=== PATIENT | female | born 1955 | race Caucasian/White ===

== ENCOUNTER 2022-08-26 14:20 | Emergency (ER) | payer BC, OTHER ==
--- NOTE | 2022-08-26 15:58 | RAD REPORT ---
EXAM DESCRIPTION: RAD - Chest Single View - 08/26/2022 3:51 pm CLINICAL HISTORY: Near syncope COMPARISON: None TECHNIQUE: AP portable chest image was obtained 08/26/2022 3:51 pm . FINDINGS: Lungs are clear of failure, pulmonary edema or acute infiltrate. No suspicious mass identi fied. There is a small 6 mm nodular density in the lower left lung field that can be re-evaluated wit h follow-up two view imaging in 3-4 months. Heart and vasculature are normal. No measurable pleural effusion and no pneumothorax. No acute bony abnormality seen. No acute aortic findings suspected. IMPRESSION: No acute cardiopulmonary process. Small 6 mm nodule in the lower left lung field can be re-evaluated with two view imaging in 3-4 month s.
--- NOTE | 2022-08-26 15:59 | RAD REPORT ---
EXAM DESCRIPTION: CT - Head Brain Wo Cont - 08/26/2022 3:47 pm CLINICAL HISTORY: Near syncope COMPARISON: No comparisons TECHNIQUE: Axial 5 mm thick images of the head were obtained without IV contrast. All CT scans are performed using dose optimization technique as appropriate and may include automated exposure control or mA/KV adjustment according to patient size. FINDINGS: No intracranial hemorrhage, mass, edema or shift of mid-line structures. No acute infarcti on changes seen. No abnormal extra-axial fluid collections. Ventricles are normal. No significant atr ophy or chronic ischemic change. Mastoid air cells and visualized portions of the paranasal sinuses are clear. No acute bony findings. IMPRESSION: Negative non-contrast CT head examination.
[2022-08-26 16:37] LABS: Absolute Lymphocytes (CBC) 0.4 K/uL (0.7-4.9); Lymphocytes % 3.7 % (15.3-44.8); MCV 91.6 fL (80-100); MPV 8.8 fL (7.6-11.3); RBC Red Blood Cell Count 5.24 M/uL (3.86-4.86)
[2022-08-26] MEDS ORDERED: ONDANSETRON 4 MG/2 ML VIAL ONE (17:03)
[2022-08-26] MEDS ORDERED: NA CHLORIDE 0.9% 1,000 ML ONE (17:03)
[2022-08-26 17:20] LABS: Albumin 4.3 g/dL (3.4-5.0); Bilirubin Direct 0.2 mg/dL (0-0.2); Bilirubin Total 0.8 mg/dL (0.2-1.0); Magnesium 2.3 mg/dL (1.6-2.4); Potassium 3.5 mmol/L (3.5-5.1); Troponin High Sensitivity 5.1 pg/mL (<58.9)
[2022-08-26 17:48] LABS: Protime INR 1.09
[2022-08-26] MEDS ORDERED: PROMETHAZINE INJ 25 MG/ML AMP ONE (18:20)
[2022-08-26 20:13] LABS: White Blood Cell Scan OK (OK)
[2022-08-26 20:14] LABS: Blood Morphology Comment NOT SEEN (NOT SEEN); Platelet Estimate ADEQ
--- NOTE | 2022-08-26 20:51 | EDPHYS ---
Physician Documentation [facility] Name: King Saldana Jr Age: 67 yrs Sex: Female : 1955 Arrival Date: 08/26/2022 Time: 15:10 Bed 26 Private MD: ED Physician Marek Faith HPI: 08/26 15:37 This 67 yrs old Female presents to ER via EMS with complaints of Near Syncope. pm1 15:37 The patient has experienced near-syncope, felt faint. Onset: The symptoms/episode pm1 began/occurred at 12:45. Duration: This was a single episode. Context: occurred at a restaurant, occurred while the patient was walking, Just prior to the episode the patient experienced no apparent symptoms. Associated injury: The patient did not suffer any apparent associated injury. Associated signs and symptoms: Pertinent positives: nausea, Pertinent negatives: abdominal pain, chest pain, headache, shortness of breath. Current symptoms: Currently, the patient is not experiencing any symptoms. The patient has not experienced similar symptoms in the past. The patient has not recently seen a physician, out of town. Patient with near syncopal episode after eating lunch. Patient stood up from the table to walk to the restroom and on the way to the restroom patient felt faint. Patient had to lay down on the bench next to the restroom. Patient denies fall or fall injury negative for headache, chest pain, shortness of breath.. Historical: - Allergies: 15:23 No Known Allergies; eh3 - Home Meds: 15:23 Plavix Oral [Active]; aspirin 81 mg Oral cap 1 cap once daily [Active]; Metformin Oral eh3 [Active]; - PMHx: 15:23 Diabetes mellitus; eh3 - PSHx: 15:23 Stented artery; eh3 - Immunization history:: Adult Immunizations up to date. - Social history:: Smoking status: Patient denies any tobacco usage or history of. Patient/guardian denies using alcohol. ROS: 15:37 Constitutional: Negative for fever, chills, and weight loss, Cardiovascular: Negative pm1 for chest pain, palpitations, and edema, Respiratory: Negative for shortness of breath, cough, wheezing, and pleuritic chest pain, Back: Negative for injury and pain, MS/Extremity: Negative for injury and deformity. 15:37 Skin: Negative for injury, rash, and discoloration. 15:37 Abdomen/GI: Positive for nausea, Negative for abdominal pain, vomiting, diarrhea. 15:37 Neuro: Positive for dizziness, Negative for numbness, tingling, weakness. 15:37 All other systems are negative. Exam: 15:37 Constitutional: This is a well developed, well nourished patient who is awake, alert, pm1 and in no acute distress. Head/Face: Normocephalic, atraumatic. 15:37 Back: No spinal tenderness. No costovertebral tenderness. Full range of motion. Skin: Warm, dry with normal turgor. Normal color with no rashes, no lesions, and no evidence of cellulitis. MS/ Extremity: Pulses equal, no cyanosis. Neurovascular intact. Full, normal range of motion. 15:37 Eyes: Exam is negative for acute changes, Periorbital structures: no acute changes, Extraocular movements: no acute changes, Conjunctiva: no acute changes, no injection. 15:37 ENT: Exam is negative for acute changes, Mouth: no acute changes, Lips: normal, moist, Oral mucosa: normal, pink and intact, moist. 15:37 Cardiovascular: Exam negative for acute changes, Rate: normal, Rhythm: regular, Pulses: Heart sounds: normal, normal S1and S2. 15:37 Respiratory: Exam negative for acute changes, respiratory distress, shortness of breath, Breath sounds: are clear throughout. 15:37 Abdomen/GI: Inspection: abdomen appears normal, Palpation: abdomen is soft and non-tender, in all quadrants. 15:37 Neuro: Exam negative for acute changes, Orientation: is normal, Mentation: is normal, Cranial nerves: CN II- XII are normal as tested, Cerebellar function: normal finger to nose testing, able to perform alternating rapid hand movements, Motor: is normal, moves all fours, Sensation: no obvious gross deficits. Vital Signs: 15:20 BP 129 / 80; Pulse 60; Resp 18; Pulse Ox 96% on R/A; Weight 85.28 kg; Height 5 ft. 11 eh3 in. (180.34 cm); Pain 0/10; 16:21 BP 136 / 81 Supine; Pulse 62; Resp 16; Pulse Ox 100% on R/A; eh3 16:23 BP 140 / 90 Sitting; Pulse 67; Resp 18; Pulse Ox 100% on R/A; eh3 16:25 BP 139 / 87 Standing; Pulse 68; Resp 19; Pulse Ox 100% on R/A; eh3 17:30 BP 122 / 85; Pulse 65; Resp 20; Pulse Ox 96% on R/A; eh3 18:30 BP 147 / 82; Pulse 69; Resp 20; Pulse Ox 99% on R/A; eh3 19:30 BP 149 / 93; Pulse 82; Resp 20; Pulse Ox 99% on R/A; eh3 20:30 BP 142 / 87; Pulse 82; Resp 20; Pulse Ox 99% on R/A; eh3 15:20 Body Mass Index 26.22 (85.28 kg, 180.34 cm) [facility] MDM: 15:25 Patient medically screened. pm1 17:28 ED course: Patient with nausea and vomiting on standing with orthostatic blood pm1 pressures. 19:44 ED course: Patient refused covid and flu swabs. pm1 20:11 Data reviewed: vital signs. Data interpreted: Pulse oximetry: on room air is 99 %. pm1 Interpretation: normal. 20:49 Counseling: I had a detailed discussion with the patient and/or guardian regarding: the pm1 historical points, exam findings, and any diagnostic results supporting the discharge/admit diagnosis, lab results, radiology results, the need for outpatient follow up, to return to the emergency department if symptoms worsen or persist or if there are any questions or concerns that arise at home. 20:49 ED course: Patient reports resolution of symptoms with IV fluids and was able to pm1 ambulate without any difficulty. 08/26 15:37 Order name: Basic Metabolic Panel; Complete Time: 17:20 pm1 08/26 15:37 Order name: CBC with Diff; Complete Time: 20:15 pm1 08/26 15:37 Order name: LFT's; Complete Time: 17:20 pm1 08/26 15:37 Order name: Magnesium; Complete Time: 17:20 pm1 08/26 15:37 Order name: NT PRO-BNP; Complete Time: 17:20 pm1 08/26 15:37 Order name: PT-INR; Complete Time: 17:52 pm1 08/26 15:37 Order name: Troponin HS; Complete Time: 17:20 pm1 08/26 15:37 Order name: XRAY Chest (1 view); Complete Time: 16:03 pm1 08/26 15:37 Order name: CT Head Brain wo Cont; Complete Time: 16:03 pm1 08/26 19:43 Order name: Troponin High Sensitivity; Complete Time: 20:43 pm1 08/26 20:14 Order name: CBC Smear Scan; Complete Time: 20:15 EDMS 08/26 15:37 Order name: EKG; Complete Time: 15:37 pm1 08/26 15:37 Order name: Cardiac monitoring; Complete Time: 15:43 pm1 08/26 15:37 Order name: EKG - Nurse/Tech; Complete Time: 15:43 pm1 08/26 15:37 Order name: IV Saline Lock; Complete Time: 15:44 pm1 08/26 15:37 Order name: Labs collected and sent; Complete Time: 16:19 pm1 08/26 15:37 Order name: O2 Per Protocol; Complete Time: 15:44 pm1 08/26 15:37 Order name: O2 Sat Monitoring; Complete Time: 15:44 pm1 08/26 15:37 Order name: Orthostatic Blood Pressure; Complete Time: 16:28 pm1 08/26 16:31 Order name: Labs - recollect needed: recollect blue and green/ hemolyzed; Complete eb Time: 16:55 EC:43 Rate is 61 beats/min. Rhythm is regular, Normal Sinus Rhythm with No ectopy. QRS [place] pm1 is Normal. NV interval is normal. QRS interval is normal. QT interval is normal. No Q waves. T waves are Normal. No ST changes noted. Clinical impression: Normal ECG. Administered Medications: 17:00 Drug: Zofran (Ondansetron) 4 mg Route: IVP; Site: right antecubital; eh3 18:04 Follow up: Response: Nausea unchanged eh3 17:00 Drug: NS 0.9% 1000 ml Route: IV; Rate: 1000 ml; Site: right antecubital; eh3 18:30 Follow up: IV Status: Completed infusion; IV Intake: 1000ml eh3 18:18 Drug: Phenergan (promethazine) 12.5 mg Route: IVP; Site: right antecubital; eh3 19:15 Follow up: Response: Nausea is decreased eh3 Disposition: 17:59 Co-signature as Attending Physician, Marek Faith MD I agree with the assessment and rt plan of care. Disposition Summary: 08/26/22 20:51 Discharge Ordered Location: Home pm1 Problem: new pm1 Symptoms: have improved pm1 Condition: Stable pm1 Diagnosis - Dehydration pm1 - Syncope Near pm1 Followup: pm1 - With: Emergency Department - When: As needed - Reason: Worsening of condition Followup: pm1 - With: Private Physician - When: 2 - 3 days - Reason: Recheck today's complaints, Continuance of care, Re-evaluation by your physician Discharge Instructions: - Discharge Summary Sheet pm1 - Dehydration, Elderly pm1 - Near-Syncope, [id number] pm1 - Rehydration, Elderly pm1 Forms: - Medication Reconciliation Form pm1 - Thank You Letter pm1 - Antibiotic Education pm1 - Prescription Opioid Use pm1 Signatures: Dispatcher [employer] EDMS Andrea Leija, CAR DELIVERER CAR DELIVERER pm1 Ana Laura Arellano Erin, RN RN 3 Marek Faith MD MD rt
--- NOTE | 2022-08-26 20:51 | ER ---
Nurse's Notes [facility] Name: King Saldana Jr Age: 67 yrs Sex: Female : 1955 Arrival Date: 08/26/2022 Time: 15:10 Bed 26 Private MD: Diagnosis: Dehydration;Syncope Near Presentation: 08/26 15:20 Chief complaint: EMS states: pt was eating lunch at a restaurant, stood up to go to the [facility] bathroom, and felt dizzy and nauseated. Stumbled while walking but did not fall, was assisted to sit in a chair. Pale, cool, and clammy upon EMS arrival. BP 130/80 and HR in 50s, sinus rhythm reported by EMS. Coronavirus screen: Vaccine status: Patient reports receiving the 2nd dose of the covid vaccine. Ebola Screen: No symptoms or risks identified at this time. Initial Sepsis Screen: Does the patient meet any 2 criteria? No. Patient's initial sepsis screen is negative. Does the patient have a suspected source of infection? No. Patient's initial sepsis screen is negative. Risk Assessment: Do you want to hurt yourself or someone else? Patient reports no desire to harm self or others. Onset of symptoms was August 26, 2022. Care prior to arrival: Medication(s) given: zofran 4 mg. 15:20 Method Of Arrival: EMS: [facility] 15:20 Acuity: WARNER 3 3 Triage Assessment: 15:23 General: Appears in no apparent distress. comfortable, Behavior is calm, cooperative, 3 appropriate for age. Pain: Denies pain. Historical: - Allergies: 15:23 No Known Allergies; 3 - Home Meds: 15:23 Plavix Oral [Active]; aspirin 81 mg Oral cap 1 cap once daily [Active]; Metformin Oral 3 [Active]; - PMHx: 15:23 Diabetes mellitus; 3 - PSHx: 15:23 Stented artery; 3 - Immunization history:: Adult Immunizations up to date. - Social history:: Smoking status: Patient denies any tobacco usage or history of. Patient/guardian denies using alcohol. Screenin:23 [facility] ED Fall Risk Assessment (Adult) History of falling in the last 3 months, [facility] including since admission No falls in past 3 months (0 pts) Confusion or Disorientation No (0 pts) Intoxicated or Sedated No (0 pts) Impaired Gait No (0 pts) Mobility Assist Device Used No (0 pt) Altered Elimination No (0 pt) Score/Fall Risk Level 0 - 2 = Low Risk. Abuse screen: Denies threats or abuse. Denies injuries from another. Nutritional screening: No deficits noted. Tuberculosis screening: No symptoms or risk factors identified. Assessment: 15:23 Reassessment: No changes from previously documented assessment. See triage assessment. [facility] 16:27 Reassessment: Patient appears in no apparent distress at this time. Patient and/or [facility] family updated on plan of care and expected duration. Pain level reassessed. Patient is alert, oriented x 3, equal unlabored respirations, skin warm/dry/pink. GI: Reports nausea. 17:30 Reassessment: Patient appears in no apparent distress at this time. Patient and/or [facility] family updated on plan of care and expected duration. Pain level reassessed. Patient is alert, oriented x 3, equal unlabored respirations, skin warm/dry/pink. GI: Pt is actively vomiting bile, Reports nausea. 18:30 Reassessment: Patient appears in no apparent distress at this time. Patient and/or [facility] family updated on plan of care and expected duration. Pain level reassessed. Patient is alert, oriented x 3, equal unlabored respirations, skin warm/dry/pink. Patient states symptoms have improved. 19:30 Reassessment: Patient appears in no apparent distress at this time. Patient and/or [facility] family updated on plan of care and expected duration. Pain level reassessed. Patient is alert, oriented x 3, equal unlabored respirations, skin warm/dry/pink. Patient states feeling better. 20:30 Reassessment: Patient appears in no apparent distress at this time. Patient and/or [facility] family updated on plan of care and expected duration. Pain level reassessed. Patient is alert, oriented x 3, equal unlabored respirations, skin warm/dry/pink. Patient states feeling better. Vital Signs: 15:20 BP 129 / 80; Pulse 60; Resp 18; Pulse Ox 96% on R/A; Weight 85.28 kg; Height 5 ft. 11 3 in. (180.34 cm); Pain 0/10; 16:21 BP 136 / 81 Supine; Pulse 62; Resp 16; Pulse Ox 100% on R/A; eh3 16:23 BP 140 / 90 Sitting; Pulse 67; Resp 18; Pulse Ox 100% on R/A; eh3 16:25 BP 139 / 87 Standing; Pulse 68; Resp 19; Pulse Ox 100% on R/A; eh3 17:30 BP 122 / 85; Pulse 65; Resp 20; Pulse Ox 96% on R/A; eh3 18:30 BP 147 / 82; Pulse 69; Resp 20; Pulse Ox 99% on R/A; eh3 19:30 BP 149 / 93; Pulse 82; Resp 20; Pulse Ox 99% on R/A; eh3 20:30 BP 142 / 87; Pulse 82; Resp 20; Pulse Ox 99% on R/A; eh3 15:20 Body Mass Index 26.22 (85.28 kg, 180.34 cm) eh3 ED Course: 15:10 Patient arrived in ED. ph 15:20 Bhumi Duarte, PHYLICIA is Primary Nurse. eh3 15:23 Triage completed. eh3 15:23 Arm band placed on. eh3 15:23 Patient has correct armband on for positive identification. eh3 15:23 Maintain EMS IV. Dressing intact. Good blood return noted. Site clean \T\ dry. Gauge \T\ eh 3 site: 20g RFA. 15:24 Andrea Leija NP is PHCP. pm1 15:24 Marek Faith MD is Attending Physician. pm1 15:49 CT Head Brain wo Cont In Process Unspecified. EDMS 15:53 XRAY Chest (1 view) In Process Unspecified. EDMS 17:00 Inserted saline lock: 22 gauge in right antecubital area, using aseptic technique. mm9 Blood collected. 20:10 Troponin High Sensitivity Sent. eh3 21:11 No provider procedures requiring assistance completed. IV discontinued, intact, eh3 bleeding controlled, No redness/swelling at site. Pressure dressing applied. Administered Medications: 17:00 Drug: Zofran (Ondansetron) 4 mg Route: IVP; Site: right antecubital; eh3 18:04 Follow up: Response: Nausea unchanged eh3 17:00 Drug: NS 0.9% 1000 ml Route: IV; Rate: 1000 ml; Site: right antecubital; eh3 18:30 Follow up: IV Status: Completed infusion; IV Intake: 1000ml 3 18:18 Drug: Phenergan (promethazine) 12.5 mg Route: IVP; Site: right antecubital; 3 19:15 Follow up: Response: Nausea is decreased 3 Medication: 21:11 VIS not applicable for this client. 3 Intake: 18:30 IV: 1000ml; Total: 1000ml. 3 Outcome: 20:51 Discharge ordered by MD. pm1 21:11 Discharged to home ambulatory, with significant other. 3 21:11 Condition: stable 21:11 Discharge instructions given to patient, family, Instructed on discharge instructions, follow up and referral plans. Demonstrated understanding of instructions, follow-up care. 21:17 Patient left the ED. 3 Signatures: Dispatcher [employer] EDSiomara Cash RN RN ph Marinas, Patrick, [employer] ST[employer]ENT pm1 Bhumi Duarte RN RN eh3 Joycelyn Arenas mm9
[2022-08-26 21:59] VITALS: O2SAT 99
[2022-08-26 22:03] VITALS: BP 142/87
--- NOTE | 2022-08-27 17:45 | EKG ---
Test Date: 2022-08-26 Test Time: 15:41:31 Carpentry Specialist: VIRGILIO MEASUREMENT RESULTS: Intervals: Rate: 61 OR: 150 QRSD: 110 QT: 436 QTc: 438 [place]: P: 60 OR: 150 QRS: 39 T: 46 INTERPRETIVE STATEMENTS: Normal sinus rhythm Normal ECG No previous ECG available for comparison Electronically Signed On 08-27-22 17:43:34 EMBOSSING MACHINE OPERATOR HELPER by Berto Hurtado
== END 2022-08-26 21:17 | disposition home or self-care (01) ==
LOC: ER 14:20
DX: E86.0 Dehydration (principal); E11.9 Type 2 diabetes mellitus without complications; Z95.818 Presence of other cardiac implants and grafts; Z79.01 Long term (current) use of anticoagulants; Z79.82 Long term (current) use of aspirin
CPT/HCPCS: 85025; 80048; 36415; 83735; 85610; 80076; 84484 ×2; 83880; 70450; 71045; J2550; J7030; J2405; 93005